=== PATIENT | male | born 1955 | race Caucasian/White ===

== ENCOUNTER → 2019-01-19 13:19 | Outpatient (CLI) | payer SELFPAY ==
--- NOTE | 2019-01-19 13:28 | CT_ITS ---
STUDY: CT CHEST WITHOUT CONTRAST REASON FOR EXAM: Male, 63 years old. HYPERLIPIDEMIA, HX-HTN, NON SMOKER RADIATION DOSAGE (If Supplied By Facility): CTDIvol = ( 12.19 ) mGy, DLP = ( 268.17 ) mGycm TECHNIQUE: Transaxial imaging was performed without the administration of intravenous contrast material. Individualized dose optimization techniques were used for this CT. COMPARISON: None. FINDINGS: There is a nodule in the right lung lower lobe posterior basal segment measures 1.8 cm with central calcification consistent with a granuloma. There is no demonstrated pleural abnormality. Normal heart and pericardium. Normal mediastinum. Normal hilar regions. Normal unenhanced pulmonary arteries. Normal aorta arch and descending thoracic aorta. There are mild multi-level degenerative changes of the thoracic spine. There is no demonstrated abnormality of the visualized upper abdomen. CT/Limited Chest CT w/CCTA IMPRESSION: There are mild multi-level degenerative changes of the thoracic spine. Electronically Signed: Olivier Patel, at 13:25 EDT Tel , Service support ,
[2019-01-19 14:02] VITALS: BP 111/65; PULSE 56; RESP 18; O2SAT 98; BMI 28.6
--- NOTE | 2019-01-19 17:29 | CA.SCORE ---
Calcium Scoring Date of Study:: 01/19/19 Coronary Calcium Scoring: Coronary calcium score. High-resolution computed tomographic imaging of the chest was performed on 01/19/2019 with particular attention paid to the coronary arteries. Images from the examination were analyzed for the presence and extent of coronary artery calcification using the coronary calcification quantification software. The patient tolerated the procedure well and there were no complications. The results of the coronary calcification analysis are provided below. Coronary artery Left main score 0 Left anterior descending artery score 12.7 Left circumflex artery score 0 Right coronary artery score 0 Total Agatston score 12.7. This percentile ranking is equivalent to less than 25% of age-matched controls. Interpretation. The above is suggestive of minimal atherosclerotic plaque burden.
== END ==
PROVIDERS: Family Provider Internal Medicine; PCP Internal Medicine; Referring Provider Internal Medicine; Visit Provider Internal Medicine
DX: E78.5 Hyperlipidemia, unspecified (principal)
CPT/HCPCS: 75571; 76380